=== PATIENT | male | born 2005 | race Caucasian/White ===

== ENCOUNTER 2023-09-04 16:14 | Emergency (ER) | payer OTHER, BC ==
[2023-09-04] MEDS: Proparacaine 0.5% Ophth Soln 15 ML Bottle EYELF ONE (16:26)
[2023-09-04] MEDS: Fluorescein 1 MG Ophth Strip EYELF ONE (16:27)
[2023-09-04] MEDS: Polymyxin B/Trimethoprim 10 ML Bottle EYELF ONE (16:27)
== END 2023-09-04 16:39 | disposition home or self-care (01) ==
LOC: VM.ED 16:14
DX: S05.02XA Injury of conjunctiva and corneal abrasion without foreign body, left eye, initial encounter (principal); X58.XXXA Exposure to other specified factors, initial encounter
CPT/HCPCS: 99283; A9270-GY; J3490